=== PATIENT | male | born 1985 | race Caucasian/White ===

== ENCOUNTER 2017-07-12 01:50 | Emergency (ER) | payer OTHER ==
[~2017-07-12] VITALS: Ht 177.8 cm; Wt 109.0 kg
[2017-07-12 01:53] VITALS: TEMP 36.8; Ht 177.8 cm; Wt 109.0 kg
[2017-07-12] MEDS ORDERED: METHYLPREDNISOLONE 125 MG VIAL IV STA (02:12)
[2017-07-12] MEDS ORDERED: FAMOTIDINE 20MG/5ML IV PUSH IV STA (02:12)
[2017-07-12] MEDS ORDERED: ONDANSETRON INJ 2 MG/ML 2 ML VIAL IV STA (02:24)
[2017-07-12] MEDS ORDERED: EPINEPHRINE ADULT AUTO-INJECT 0.3 MG SYR IM STA (03:25)
[2017-07-12 03:44] VITALS: BP 129/89; PULSE 85; O2SAT 96
--- NOTE | 2017-07-12 05:47 | EMERGENCY ROOM VISIT NOTE ---
History Report prepared by Crescencio: Ruba Denis Under the Supervision of: Dr. Megan Josue D.O. First contact with patient: 01:58 Chief Complaint: ALLERGIC REACTION Stated Complaint: ALLERGIC REACTION History of Present Illness The patient is a 31 year old male who presents to the Emergency Room with complaints of a persistent allergic reaction that began 15 minutes prior to arrival. The patient states that today he ate chicken from [employer], chili, pizza , and a mixed nuts package that contained pistachios, walnuts, and cashews. He reports that he has never eaten pistachios, noting he thinks that is what caused his allergic reaction. The patient states that he has some difficulty breathing and swallowing. He notes he is itchy above his arms near his armpits and has been nauseous. The patient states that he took Children's Benadryl at home, noting it was the only thing he had but he vomited it about 5 minutes after. He reports that he was given 50mg IV of Benadryl via EMS prior to arrival , noting it is relieving some of his symptoms. Source of History: patient Onset: 15 minutes prior to arrival today Position: other (global) Quality: other (allergic reaction) Timing: other (persistent) Associated Symptoms: + nausea, + vomiting Note: Associated symptoms include itching above arms near armpits. Review of Systems See HPI for pertinent positives & negatives. A total of 10 systems reviewed and were otherwise negative. Past Medical & Surgical No pmh Family History Patient reports no known family medical history. Social History Smoking Status: Never Smoker Smokeless Tobacco Use: No Alcohol Use: none Drug Use: none Housing Status: lives with family Occupation Status: employed Current/Historical Medications No Active Prescriptions or Reported Meds Allergies Coded Allergies: No Known Allergies (Unverified , 07/12/17) Physical Exam Vital Signs Date Time Temp Pulse Resp B/P (MAP) Pulse Ox O2 Delivery O2 Flow Rate FiO2 07/12/17 03:44 85 18 129/89 96 07/12/17 02:42 16 95 Nasal Cannula 2.0 07/12/17 02:38 80 16 131/81 88 Room Air 07/12/17 02:28 86 07/12/17 01:59 96 Room Air 07/12/17 01:53 36.8 95 170/98 96 Room Air Physical Exam HEENT: Head - normocephalic and atraumatic Pupils are equal, round, and reactive to light. Extraocular eye muscles are intact, and sclera are anicteric. Nose - moist nasal mucosa without discharge. Mouth - slight lip swelling, moist buccal mucosa. Oropharynx is nonerythematous and there is no tonsillar exudate or edema noted. Neck: Supple; no JVD, nuchal rigidity, cervical lymphadenopathy. Heart: Regular rate and rhythm. There is a normal S1 and S2 with no murmurs, clicks, or gallops appreciated. Lungs: Clear to auscultation bilaterally with no wheezes, rales, or rhonchi. Abdomen: Soft, completely nontender, nondistended, with good bowel sounds. There are no palpable pulsatile masses or hepatosplenomegaly. There is no guarding, rigidity, or rebound noted. Extremities: No evidence of cyanosis, clubbing, or edema. There are easily palpable peripheral pulses. Skin: diffused hives, warm, and dry with good turgor Medical Decision & Procedures Medications Administered Medications (Trade) Dose Ordered Sig/Jarett Route Start Time Stop Time Status Last Admin Dose Admin Famotidine (Pepcid 20mg Iv Push) 20 mg ONE STAT IV 07/12/17 02:12 07/12/17 02:13 DC 07/12/17 02:16 20 MG Methylprednisolone Sodium Succinate (Solu-Medrol IV) 125 mg NOW STAT IV 07/12/17 02:12 07/12/17 02:13 DC 07/12/17 02:16 125 MG Ondansetron HCl (Zofran Inj) 4 mg NOW STAT IV 07/12/17 02:24 07/12/17 02:25 DC 07/12/17 02:27 4 MG Procedure 0212: Ordered Solu-Medrol IV 125mg IV and Famotidine 20mg IV. 0224: Ordered Zofran Inj 4mg IV. ED Course 0205: Past medical records reviewed. The patient was evaluated in room A2. A complete history and physical exam was performed. 0212: Ordered Solu-Medrol IV 125mg IV and Famotidine 20mg IV. 0224: The patient has vomiting. Ordered Zofran Inj 4mg IV. 0316: Upon reevaluation, he is feeling better and is no longer itchy. I discussed findings and results with the patient. He verbalized agreement of the treatment plan. The patient will be discharged home with an EpiPen. Medical Decision The patient is a 31 year old male who presents to the ED with an allergic reaction. Differential diagnosis includes anaphylaxis, nut allergy, and an allergic reaction. The patient developed an acute allergic reaction after eating nuts. He has never had a known allergy before. He took some Benadryl at home with minimal relief of his symptoms. EMS gave IV Benadryl which helped slightly but the patient still describes diffuse itchiness. On physical exam, he has diffuse hives and some swelling to his lips. There is no uvular edema or tongue swelling. The patient was given IV Solu-Medrol and IV Pepcid here in the emergency department. He did have an episode of vomiting for which she received IV Zofran. Overall, the patient is feeling much better and his symptoms had resolved. Nursing staff instructed the patient on how to use an EpiPen. He was given one to take with him in case he were to have additional symptoms or another subsequent reaction. In the meantime, the patient was instructed to use Benadryl every 6 hours. Medication Reconcilliation Current Medication List: was personally reviewed by me Blood Pressure Screening Patient's blood pressure: Normal blood pressure Impression Primary Impression: Nut allergy Additional Impression: Allergic reaction Scribe Attestation The scribe's documentation has been prepared under my direction and personally reviewed by me in its entirety. I confirm that the note above accurately reflects all work, treatment, procedures, and medical decision making performed by me. Departure Information Dispostion Home / Self-Care Prescriptions No Active Prescriptions or Reported Meds Forms HOME CARE DOCUMENTATION FORM, IMPORTANT VISIT INFORMATION Patient Instructions My [facility] Additional Instructions Rest. Take benadryl 50 mg every 6 hours for continued symptoms Carry epi-pen with you for more severe reaction - facial swelling, tongue swelling, shortness of breath. Avoid nuts. Problem Qualifiers Additional Impression: Allergic reaction Encounter type: initial encounter Qualified Codes: T78.40XA - Allergy, unspecified, initial encounter
== END 2017-07-12 03:45 | disposition home or self-care (01) ==
LOC: EDBD 01:50 → C.EDA 01:53
DX: T78.1XXA Other adverse food reactions, not elsewhere classified, initial encounter (principal); X58.XXXA Exposure to other specified factors, initial encounter